=== PATIENT | female | born 1935 | race Caucasian/White ===

== ENCOUNTER 2018-03-27 06:48 | Inpatient (IN) | payer MEDICARE, OTHER ==
[2018-03-19 17:01] LABS: CLARITY,URINE SLIGHTLY CLOUDY (Clear); COLOR,URINE STRAW (Yellow); GLUCOSE, URINE NEGATIVE (Neg); KETONES,URINE NEGATIVE (Neg); LEUKOCYTE ESTERASE ,URINE SMALL (Neg); NITRITES, URINE NEGATIVE (Neg); OCCULT BLOOD,URINE TRACE-INTACT (Neg); PROTEIN,URINE NEGATIVE (Neg); UROBILINOGEN,URINE 0.2 E.U/dL (0.2-1.0)
[2018-03-19 17:02] LABS: UA COLLECTION TYPE CLN CATCH MIDSTREAM
[2018-03-19 17:04] LABS: BASOPHILS % (AUTO) 0.4 % (0-1); EOSINOPHILS # (AUTO) 0.1 X10'3 (0-0.9); EOSINOPHILS % (AUTO) 1.8 % (0-6); LYMPHOCYTES # (AUTO) 1.7 X10'3 (1.1-4.8); LYMPHOCYTES % (AUTO) 21.9 % (21-51); MEAN CORPUSCULAR HEMOGLOBIN 32.3 PG (27.0-31.0); MEAN CORPUSCULAR HGB CONC 33.7 % (33.0-36.5); MEAN CORPUSCULAR VOLUME 95.7 FL (78-98); MEAN PLATELET VOLUME 7.8 FL (7.4-10.4); MONOCYTES # (AUTO) 0.5 X10'3 (0-0.9); MONOCYTES % (AUTO) 6.8 % (2-12); NEUTROPHILS # (AUTO) 5.4 X10'3 (1.8-7.7); NEUTROPHILS % (AUTO) 69.1 % (42-75); PRE OP HEMATOCRIT 41.5 % (35.0-45.0); PRE OP PLATELET COUNT 312 X10'3 (140-440); RED BLOOD COUNT 4.34 X10'6 (4.20-5.60); RED CELL DISTRIBUTION WIDTH 13.3 % (11.5-14.5)
[2018-03-19 17:11] LABS: BACTERIA,URINE FEW /HPF (Neg); RBC,URINE 0-2 /HPF (0-2); SQUAMOUS EPITHELIAL CELL,UR FEW /LPF (FEW); WBC,URINE 0-4 /HPF (0-4)
[2018-03-19 17:24] LABS: ALBUMIN 3.6 G/DL (3.4-5.0); ALBUMIN/GLOBULIN RATIO 1.1 (1.1-1.5); ALKALINE PHOSPHATASE 99 IU/L (46-116); BLOOD UREA NITROGEN 13 MG/DL (7-18); BUN/CREATININE RATIO 17.6 (6.6-38.0); CALCIUM 9.3 MG/DL (8.5-10.1); CHLORIDE 101 MMOL/L (99-107); CREATININE 0.74 MG/DL (0.40-0.90); PRE OP ALT 22 U/L (30-65); PRE OP ANION GAP 9 (8-16); PRE OP AST 13 U/L (10-37); PRE OP BILIRUB, TOTAL 0.4 MG/DL (0.0-1.0); PRE OP GLUCOSE 89 MG/DL (70-104); PRE OP POTASSIUM 3.7 MMOL/L (3.4-5.1); PRE OP SODIUM 138 MMOL/L (135-145); TOTAL PROTEIN 6.8 G/DL (6.4-8.2); eGFR 75 ML/MIN
[2018-03-27] VITALS (23 sets, daily range): BP systolic 79–159; BP diastolic 43–94
[~2018-03-27] VITALS: Ht 154.9 cm; Wt 59.0 kg
[~2018-03-27 06:48] MED LIST: AMLO2.5T3 PO; CALCIUM PO; CLINDAmcin 900mg/NS 50ml IVPB 50 ML IV ONE; DOCUMENT DATE & TIME OF BETA-BLOCKER PO ONE; HYDR-3964 PO; LIDOcaine 1% (10mg/ml) 2ml vial ONE; LISI-600 PO; MAGNESIUM PO; METO-384 PO; VANCOMYCIN INJ 1000 MG in NORMAL SALINE 250ml IV.SOLN IV ONE; acetaminophen 325mg tablet PO ONE; famotidine 20mg tablet PO ONE; gabapentin 300mg capsule PO ONE; metoclopramide 5 mg/ml inj IV ONE; ringers solution, lacted 1,000 ML IV SCH; tranexamic acid inj. 1,000 MG in normal saline 100ml IV soln 90 ML IV ONE
[2018-03-27] MEDS ORDERED: tranexamic acid inj. 1,000 MG in normal saline 100ml IV soln 90 ML IV ONE (07:05)
[2018-03-27] MEDS ORDERED: ketorolac trometh. 30mg/ml inj. ONE (09:44)
[2018-03-27] MEDS ORDERED: ROPIVAcaine 0.5% (5mg/ml) 30ml vial ONE (09:44)
[2018-03-27] MEDS ORDERED: epiNEPHrine 1 mg/ml inj ONE (09:44)
[2018-03-27] MEDS ORDERED: MIDAZolam 5mg/5ml vial ONE (09:54)
[2018-03-27] MEDS ORDERED: fentaNYL/PF 50MCG/1 ML 2ML syringe ONE (09:54)
[2018-03-27] MEDS ORDERED: morphine /PF 1mg/ml 10ml inj. ONE (09:54)
[2018-03-27] MEDS ORDERED: Thrombin (Bovine) 5,000 unit vial TP ONE (10:20)
[2018-03-27] MEDS ORDERED: ePHEDrine 50MG/ML INJ. ONE (10:28)
[2018-03-27] MEDS ORDERED: albumin (Human) 5% 250ml 250 ML IV ONE ×3 (10:30→12:33)
[2018-03-27] MEDS ORDERED: vancomycin 1,000mg inj ONE (10:44)
[2018-03-27] MEDS ORDERED: ringers solution, lacted 1,000 ML IV SCH (11:32)
[2018-03-27] MEDS ORDERED: naloxone 2mg/2ml inj 1.2 MG in normal saline 500ml IV soln 500 ML IV PRN (11:32)
[2018-03-27] MEDS ORDERED: morphine 4 MG/ML inj SYRINge IV PRN ×2 (11:35)
[2018-03-27] MEDS ORDERED: meperidine/PF 25mg/ml syringe IV PRN ×3 (11:35)
[2018-03-27] MEDS ORDERED: ondansetron/PF 4mg/2ml inj IV PRN ×3 (11:35→11:40)
[2018-03-27] MEDS ORDERED: proCHLORperazine 10 MG/2 ml inj IV PRN (11:35)
[2018-03-27] MEDS ORDERED: HYDROmorphone 1 mg/ml syringe IV PRN (11:40)
[2018-03-27] MEDS ORDERED: oxyCODONE IR 5mg (immed. release) tablet PO PRN (11:40)
[2018-03-27] MEDS ORDERED: bisacodyl 10mg suppository rectal RC PRN (11:40)
[2018-03-27] MEDS ORDERED: magnesium hydroxide 30ml (MOM) UD suspension PO PRN (11:40)
[2018-03-27] MEDS ORDERED: acetaminophen 325mg tablet PO PRN (11:40)
[2018-03-27] MEDS ORDERED: propofol inj 20 ML IV ONE (11:46)
[2018-03-27] MEDS: gabapentin 300mg capsule PO SCH ×2 (13:00→20:18)
[2018-03-27] MEDS: acetaminophen 325mg tablet PO SCH ×2 (14:00→20:18)
[2018-03-27] MEDS ORDERED: tranexamic acid inj. 600 MG in normal saline 100ml IV soln 100 ML IV ONE (14:56)
[2018-03-27] MEDS: potassium cl 20mEq in 1/2 NS 1,000 ML IV SCH ×3 (15:27→23:46)
[2018-03-27] MEDS ORDERED: metoclopramide 5 mg/ml inj IV PRN (15:30)
[2018-03-27] MEDS: clindamycin 600mg/D5W 50ml 50 ML IV SCH ×2 (16:48→20:17)
[2018-03-27] MEDS ORDERED: vancomycin/NS 1 GM ADD-VANTAGE 250 ML IV SCH (20:00)
[2018-03-27] MEDS: lisinopril 20mg tablet PO SCH (20:00)
[2018-03-27] MEDS: sennosides 8.6mg tablet PO SCH (20:19)
[2018-03-28] VITALS (7 sets, daily range): BP systolic 96–126; BP diastolic 51–64
[2018-03-28] MEDS: clindamycin 600mg/D5W 50ml 50 ML IV SCH ×3 (02:12→13:19)
[2018-03-28] MEDS: acetaminophen 325mg tablet PO SCH ×5 (02:13→19:58)
[2018-03-28] MEDS: amLODIPine 2.5mg tablet PO SCH (08:00)
[2018-03-28] MEDS: lisinopril 20mg tablet PO SCH ×2 (08:00→19:58)
[2018-03-28] MEDS: gabapentin 300mg capsule PO SCH ×3 (08:13→19:57)
[2018-03-28] MEDS: metoprolol succinate 25mg (24-HOUR) SR. Tablet PO SCH (08:13)
[2018-03-28] MEDS: aspirin 325mg tablet PO SCH (08:14)
[2018-03-28 09:36] LABS: BASOPHILS % (AUTO) 0.3 % (0-1); EOSINOPHILS % (AUTO) 0.7 % (0-6); HEMATOCRIT 32.1 % (35.0-45.0); HEMOGLOBIN 10.9 g/dl (12.0-16.0); LYMPHOCYTES # (AUTO) 0.9 X10'3 (1.1-4.8); LYMPHOCYTES % (AUTO) 11.7 % (21-51); MEAN CORPUSCULAR HEMOGLOBIN 32.2 PG (27.0-31.0); MEAN CORPUSCULAR HGB CONC 33.8 % (33.0-36.5); MEAN CORPUSCULAR VOLUME 95.3 FL (78-98); MEAN PLATELET VOLUME 7.2 FL (7.4-10.4); MONOCYTES # (AUTO) 0.7 X10'3 (0-0.9); MONOCYTES % (AUTO) 9.5 % (2-12); NEUTROPHILS # (AUTO) 5.9 X10'3 (1.8-7.7); NEUTROPHILS % (AUTO) 77.8 % (42-75); PLATELET COUNT 225 X10'3 (140-440); RED BLOOD COUNT 3.37 X10'6 (4.20-5.60); RED CELL DISTRIBUTION WIDTH 13.7 % (11.5-14.5); WHITE BLOOD COUNT 7.6 X10'3 (4.5-11.0)
[2018-03-28 09:42] LABS: ANION GAP 9 (8-16); CHLORIDE 98 MMOL/L (99-107); POTASSIUM 4.3 MMOL/L (3.5-5.1); SODIUM 131 MMOL/L (135-145); TOTAL CARBON DIOXIDE 24.1 MMOL/L (24-32)
[2018-03-28] MEDS: potassium cl 20mEq in 1/2 NS 1,000 ML IV SCH ×2 (12:19→19:40)
[2018-03-28] MEDS ORDERED: lactose-reduced food (Ensure High Protein) 237ml bottle PO SCH (17:00)
[2018-03-28] MEDS: sennosides 8.6mg tablet PO SCH (19:57)
[2018-03-28] MEDS: lactobacillus rhamnosus 10,000 MMU CELLS/CAPSULE PO SCH (20:00)
[2018-03-29] MEDS: acetaminophen 325mg tablet PO SCH ×2 (02:00→05:58)
[2018-03-29] MEDS: potassium cl 20mEq in 1/2 NS 1,000 ML IV SCH (03:40)
[2018-03-29 06:00] VITALS: BP 166/73
[2018-03-29 07:09] LABS: BASOPHILS % (AUTO) 0.2 % (0-1); EOSINOPHILS # (AUTO) 0.1 X10'3 (0-0.9); EOSINOPHILS % (AUTO) 0.7 % (0-6); HEMATOCRIT 31.8 % (35.0-45.0); HEMOGLOBIN 10.8 g/dl (12.0-16.0); LYMPHOCYTES # (AUTO) 0.6 X10'3 (1.1-4.8); LYMPHOCYTES % (AUTO) 4.8 % (21-51); MEAN CORPUSCULAR HEMOGLOBIN 32.3 PG (27.0-31.0); MEAN PLATELET VOLUME 6.8 FL (7.4-10.4); MONOCYTES # (AUTO) 0.8 X10'3 (0-0.9); MONOCYTES % (AUTO) 6.6 % (2-12); NEUTROPHILS # (AUTO) 10.5 X10'3 (1.8-7.7); NEUTROPHILS % (AUTO) 87.7 % (42-75); PLATELET COUNT 227 X10'3 (140-440); RED BLOOD COUNT 3.35 X10'6 (4.20-5.60); RED CELL DISTRIBUTION WIDTH 13.6 % (11.5-14.5)
[2018-03-29] MEDS: lactobacillus rhamnosus 10,000 MMU CELLS/CAPSULE PO SCH ×2 (08:00→20:00)
[2018-03-29] MEDS: amLODIPine 2.5mg tablet PO SCH (08:08)
[2018-03-29] MEDS: gabapentin 300mg capsule PO SCH ×3 (08:08→20:22)
[2018-03-29] MEDS: metoprolol succinate 25mg (24-HOUR) SR. Tablet PO SCH (08:08)
[2018-03-29] MEDS: lisinopril 20mg tablet PO SCH ×2 (08:09→20:20)
[2018-03-29] MEDS: aspirin 325mg tablet PO SCH (08:09)
[2018-03-29 10:00] VITALS: BP 127/67
[2018-03-29] MEDS ORDERED: lactose-reduced food (Ensure High Protein) 237ml bottle PO SCH ×2 (17:07→18:30)
[2018-03-29 18:00] VITALS: BP 174/84
[2018-03-29 20:18] VITALS: BP 140/76
[2018-03-29] MEDS: acetaminophen 325mg tablet PO PRN (20:22)
[2018-03-29] MEDS: sennosides 8.6mg tablet PO SCH (20:22)
[2018-03-29 22:00] VITALS: BP 144/72
[2018-03-30] MEDS: acetaminophen 325mg tablet PO PRN ×2 (03:03→13:07)
[2018-03-30 06:00] VITALS: BP 152/83
[2018-03-30 06:05] LABS: BASOPHILS % (AUTO) 0.3 % (0-1); EOSINOPHILS # (AUTO) 0.1 X10'3 (0-0.9); EOSINOPHILS % (AUTO) 1.1 % (0-6); HEMATOCRIT 34.9 % (35.0-45.0); HEMOGLOBIN 11.6 g/dl (12.0-16.0); LYMPHOCYTES # (AUTO) 1.2 X10'3 (1.1-4.8); LYMPHOCYTES % (AUTO) 10.2 % (21-51); MEAN CORPUSCULAR HEMOGLOBIN 31.8 PG (27.0-31.0); MEAN CORPUSCULAR HGB CONC 33.3 % (33.0-36.5); MEAN CORPUSCULAR VOLUME 95.6 FL (78-98); MEAN PLATELET VOLUME 7.7 FL (7.4-10.4); MONOCYTES # (AUTO) 0.9 X10'3 (0-0.9); NEUTROPHILS # (AUTO) 9.4 X10'3 (1.8-7.7); NEUTROPHILS % (AUTO) 80.4 % (42-75); PLATELET COUNT 251 X10'3 (140-440); RED BLOOD COUNT 3.65 X10'6 (4.20-5.60); RED CELL DISTRIBUTION WIDTH 13.6 % (11.5-14.5); WHITE BLOOD COUNT 11.7 X10'3 (4.5-11.0)
[2018-03-30] MEDS: lactobacillus rhamnosus 10,000 MMU CELLS/CAPSULE PO SCH (08:00)
[2018-03-30 08:26] VITALS: BP_SYST 152
[2018-03-30] MEDS: metoprolol succinate 25mg (24-HOUR) SR. Tablet PO SCH (08:26)
[2018-03-30] MEDS: lisinopril 20mg tablet PO SCH (08:26)
[2018-03-30] MEDS: aspirin 325mg tablet PO SCH (08:27)
[2018-03-30] MEDS: gabapentin 300mg capsule PO SCH ×2 (08:27→13:07)
[2018-03-30] MEDS: amLODIPine 2.5mg tablet PO SCH (08:27)
== END 2018-03-30 14:05 | disposition home health service (06) | DRG 470 ==
LOC: PAS IN 06:48 → EDSTATUS 10:30 → ORTHO 4S 14:00
PROVIDERS: ADMIT Orthopaedic Surgery; ATTEND Orthopaedic Surgery
PROC: 0SR90JA Replacement of Right Hip Joint with Synthetic Substitute, Uncemented, Open Approach (ICD-10-PCS; principal; 2018-03-27 09:47)
DX: M16.11 Unilateral primary osteoarthritis, right hip (principal); D62 Acute posthemorrhagic anemia; I10 Essential (primary) hypertension; Z88.1 Allergy status to other antibiotic agents; Z88.8 Allergy status to other drugs, medicaments and biological substances
CPT/HCPCS: 36415; 72170; 80051; 80053; 81001; 85025; 85610; 85730; 86885; 86900; 86901; 87070; 87088; 97110; 97116; 97161; 97162; 97530; 97535; A6449; A7000; C1758; C1776; G0378; J0171; J0690; J1885; J2250; J2274; J2405; J2704; J2765; J2795; J3010; J3370; J3490; J7030; J7120; P9045